=== PATIENT | male | born 1955 | race Caucasian/White ===

== ENCOUNTER → 2019-09-11 | Outpatient (CLI) | payer MEDICARE ==
--- NOTE | 2019-09-11 12:40 | 2DMMODE ---
[facility] [place] [address] 2 D/M-MODE ECHOCARDIOGRAM Name: DYANAIVANIA Derek Room #: REG [facility]#: [id number] Admission: 09/11/19 Attend Phys: Efrain Suazo, Discharge: Date of : 53 Report #: [id number] THIS REPORT FOR: //name// APPROVED REPORT Study performed: 09/11/2019 11:07:44 EXAM: Comprehensive 2D, Doppler, and color-flow Echocardiogram Patient Location: Out-Patient Room #: Echo lab 2 Status: routine BSA: 2.52 HR: 66 bpm BP: 112/68 mmHg Rhythm: NSR Other Information Study Quality: Adequate Indications Pericardial Effusion 2D Dimensions RVDd: 42.20 mm IVSd: 10.57 (7-11mm) LVOT Diam: 22.35 (18-24mm) LVDd: 56.66 mm PWd: 9.81 (7-11mm) Ascending Ao: 35.93 (22-36mm) LVDs: 35.04 (25-40mm) Aortic Root: 35.76 mm IVC: 22.00 mm Volumes Left Atrial Volume (Systole) Single Plane 4CH: 55.69 mL Single Plane 2CH: 71.39 mL LA ESV Index: 28.00 mL/m2 Aortic Valve AoV Peak Deyvi.: 1.93 m/s AO Peak Gr.: 14.97 mmHg LVOT Max P.28 mmHg LVOT Max V: 1.25 m/s DAVID Vmax: 2.54 cm2 Mitral Valve E/A Ratio: 0.9 MV Decel. Time: 287.47 ms MV E Max Deyvi.: 1.10 m/s [facility] [address] [address] 2 D/M-MODE ECHOCARDIOGRAM Name: IVANIA TURPIN Derek Room #: [facility]#: [id number] Admission: 09/11/19 Attend Phys: Efrain Suazo, Discharge: Date of : 53 Report #: [id number] MV A Deyvi.: 1.20 m/s MV PHT: 83.37 ms IVRT: 124.57 ms Pulmonary Valve PV Peak Deyvi.: 1.02 m/s PV Peak Gr.: 4.16 mmHg Pulmonary Vein P Vein S: 0.72 m/s P Vein A: 0.18 m/s P Vein D: 0.60 m/s P Vein A Dur.: 96.9 msec P Vein S/D Ratio: 1.20 Tricuspid Valve TR Peak Deyvi.: 2.49 m/s TR Peak Gr.: 24.82 mmHg PA Pressure: 35.00 mmHg Left Ventricle The left ventricle is normal size. There is normal LV segmental wall motion. There is normal left ventricular wall thickness. The left ventricular systolic function is normal. The left ventricular ejection fraction is within the normal range. LVEF is 55-60%. Grade I - abnormal relaxation pattern. Right Ventricle The right ventricle is normal size. The right ventricular systolic function is normal. Atria The left atrium size is normal. The right atrium size is normal. Aortic Valve The aortic valve is normal in structure. No aortic regurgitation is present. There is no aortic valvular stenosis. Mitral Valve The mitral valve is normal in structure. There is no mitral valve regurgitation noted. No evidence of mitral valve stenosis. Tricuspid Valve The tricuspid valve is normal in structure. There is trace tricuspid regurgitation. Estimated PAP 35 mmHg. There is mild pulmonary hypertension. Pulmonic Valve [facility] [address] [place] [address] 2 D/M-MODE ECHOCARDIOGRAM Name: IVANIA TURPIN Room #: [facility]#: [id number] Admission: 09/11/19 Attend Phys: Efrain Suazo, Discharge: Date of : 53 Report #: [id number] The pulmonary valve is normal in structure. There is no pulmonic valvular regurgitation. Great Vessels The aortic root is normal in size. IVC is dilated and collapses >50% with inspiration. Pericardium Mild to moderate circumferential pericardial effusion without echocardiographic evidence of tamponade. <Conclusion> The left ventricle is normal size. LVEF is 55-60%. The aortic valve is normal in structure. The mitral valve is normal in structure. The tricuspid valve is normal in structure. There is trace tricuspid regurgitation. Estimated PAP 35 mmHg. There is mild pulmonary hypertension. The pulmonary valve is normal in structure. Mild to moderate circumferential pericardial effusion without echocardiographic evidence of tamponade. <ELECTRONICALLY SIGNED> By: Ian Lepe MD 09/11/19 [id number] Ian Lepe MD /INF
== END ==
LOC: CV 10:13
DX: I31.3 Pericardial effusion (noninflammatory) (principal); I27.20 Pulmonary hypertension, unspecified

== ENCOUNTER → 2019-09-20 | Outpatient (CLI) | payer OTHER | LOC: SJCVCIMAG 08:13 → CAT 08:44 → SJCVCIMAG 14:59 | DX: Z13.6 Encounter for screening for cardiovascular disorders (principal); I25.10 Atherosclerotic heart disease of native coronary artery without angina pectoris; E78.00 Pure hypercholesterolemia, unspecified ==

== ENCOUNTER → 2020-01-31 | Outpatient (CLI) | payer MEDICARE | LOC: SJCVCIMAG 01-23 10:16 | DX: I31.3 Pericardial effusion (noninflammatory) (principal); I25.10 Atherosclerotic heart disease of native coronary artery without angina pectoris; N18.9 Chronic kidney disease, unspecified; E78.5 Hyperlipidemia, unspecified; Z79.899 Other long term (current) drug therapy; Z87.891 Personal history of nicotine dependence ==

== ENCOUNTER → 2020-09-17 | Outpatient (CLI) | payer MEDICARE | LOC: SJCVC 10:09 | PROVIDERS: ATTEND Internal Medicine | DX: R94.31 Abnormal electrocardiogram [ECG] [EKG] (principal); I25.10 Atherosclerotic heart disease of native coronary artery without angina pectoris; I95.9 Hypotension, unspecified; R42 Dizziness and giddiness; N18.4 Chronic kidney disease, stage 4 (severe); I31.3 Pericardial effusion (noninflammatory); D64.9 Anemia, unspecified; G62.9 Polyneuropathy, unspecified; M54.41 Lumbago with sciatica, right side; M54.42 Lumbago with sciatica, left side; G89.29 Other chronic pain; E78.5 Hyperlipidemia, unspecified; Z79.899 Other long term (current) drug therapy; Z87.891 Personal history of nicotine dependence; Z72.89 Other problems related to lifestyle ==

== ENCOUNTER → 2020-09-25 | Outpatient (CLI) | payer MEDICARE | LOC: SJCVCIMAG 10:43 | PROVIDERS: ATTEND Internal Medicine | DX: I08.1 Rheumatic disorders of both mitral and tricuspid valves (principal); I25.10 Atherosclerotic heart disease of native coronary artery without angina pectoris; I31.3 Pericardial effusion (noninflammatory); R42 Dizziness and giddiness ==

== ENCOUNTER → 2021-02-04 | Outpatient (CLI) | payer MEDICARE | LOC: SJCVC 10:09 | PROVIDERS: ATTEND Internal Medicine | DX: I31.3 Pericardial effusion (noninflammatory) (principal); I25.10 Atherosclerotic heart disease of native coronary artery without angina pectoris; G89.4 Chronic pain syndrome; N18.4 Chronic kidney disease, stage 4 (severe); F17.210 Nicotine dependence, cigarettes, uncomplicated; Z79.899 Other long term (current) drug therapy; Z72.89 Other problems related to lifestyle ==

== ENCOUNTER → 2021-03-12 | Outpatient (CLI) | payer MEDICARE ==
[~2021-03-12] VITALS: Ht 193 cm; Wt 130.6 kg
[~2021-03-12] MED LIST: CALCIUM CITRAT1 EA15 PO; FEOSOL325 M1 PO; HYDROXYZINE PAM25 M1 PO; LUNESTA2 MG PO; LYRICA PO; MS CONTIN60 MG PO; NORCO 10-325 T1 EACH PO; POTASSIUM CITR10 ME1 PO; TAMSULOSIN HCL0.4 MG PO
--- NOTE | ~2021-03-12 | HPC ---
[facility] [place] [address] PAIN MANAGEMENT CONSULTATION Name: IVANIA TURPIN Room #: REG ALVIN Buenrostro.#: [id number] Admission: 03/12/21 Attend Phys: Chuck Bashir DO Discharge: Date of : 53 Report #: [id number] THIS REPORT FOR: cc: Efrain Suazo MD, Neal A. MD Johnson, James E. DO ~ DOC #: [id number] cc: MD Chuck Sow DO DATE OF SERVICE: 03/12/2021 CHIEF COMPLAINT: Chronic low back pain. HISTORY OF PRESENT ILLNESS: As you know, the patient is a 65-year-old male who has had longstanding history of chronic low back pain, provided oral opioid medication management over the past couple of years. He was once a patient of Dr. Kings Angela, who was providing opioid medication management. The patient is currently taking 60 mg MS Contin twice a day along with the use of hydrocodone 10/325 p.r.n. up to 4 times a day. The patient is being evaluated for possible kidney transplant and has been advised by the business coordinator at that he would have to be off of opioid medication entirely before they would consider him as a candidate. Apparently a phone call was made to the group by the patient's primary care physician, Dr. Efrain Suazo who obtained information that the patient could be placed on methadone or Suboxone to take the place of the MS Contin and hydrocodone. Due to concerns of rotating the patient to these medications, the patient's primary care physician, Dr. Efrain Suazo contacted our clinic to have us see the patient and help transition him over to these medications. The patient reports today, his pain is continuous, steady and constant. He describes the pain as burning, cramping, aching, crushing, sharp, stabbing, tender and annoying. He places current pain score 6/10, daily average at 5-6/10, worst pain has been is 10/10. The patient states pain is exacerbated with any type of activity and exercise and improved with medications and rest. The patient reports that he is currently in discussions with [facility] business coordinator and wishes to delay any changes in medication management at this time until which time he has had a chance to discuss with their coordinator whether or not he is apt to come off his morphine and hydrocodone. He was referred to our clinic so that we could discuss the possibility of transition and he would then be able to return to our clinic for assistance if necessary. He is hopeful that [facility] can [facility], which potentially might not require him to come off the opioid medications. PAST MEDICAL HISTORY: 1. Chronic kidney disease, requiring possible kidney transplant. 2. Chronic intractable axial back pain due to chronic lumbar radiculopathy. [address] [address] PAIN MANAGEMENT CONSULTATION Name: DYANAIVANIA Derek Room #: REG ALVIN Bowman#: [id number] Admission: 03/12/21 Attend Phys: Chuck Bashir DO Discharge: Date of : 53 Report #: [id number] 3. Benign prostatic hypertrophy. 4. Iron deficiency. 5. Osteoporosis. PAST SURGICAL HISTORY: Neck fusion in 2009, Grace-en-Y gastric bypass in 2017. SOCIAL HISTORY: The patient is a former smoker. He denies IV or illicit drug use. Denies any chronic alcohol use. 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 He continues to do these activities. He is not receiving workmen's compensation nor is he trying to obtain disability benefits. He is not in litigation in regards to pain. He is unaccompanied at today's visit. REVIEW OF SYSTEMS: Positive for wearing corrective eyewear, hearing loss with tinnitus, nocturia, change of force or stream urination, incontinence and dribbling to urine, kidney stones and sexual difficulty, numbness and tingling sensations and insomnia, glandular and hormonal problems, thyroid disease, heat and cold intolerance and iron deficiency anemia. All other review of systems negative per 12-point review of systems other than those listed in history of present illness. Pain impact score 33/70, moderate interference of daily activities secondary to pain. ALLERGIES: No known drug allergies. CURRENT MEDICATIONS: Tamsulosin 0.4 mg once a day, ferrous sulfate 325 mg per day, calcium carbonate 1 tab per day, potassium citrate 10 mEq per day, Lyrica 400 mg once a day, Lunesta 2 mg p.o. bedtime, hydroxyzine 25 mg in the morning, hydrocodone 10/325 one tab every 6 hours p.r.n. for pain, MS Contin 60 mg twice a day. IMAGING: No imaging available. PHYSICAL EXAMINATION: VITAL SIGNS: Blood pressure 151/80, pulse is 63, respiratory rate 18 and unlabored. The patient is 100% on room air, height 6 feet 4 inches tall, weight 288 pounds, BMI calculated 35.1. GENERAL: Well-developed, well-nourished, well-hydrated 64-year-old male. He appears his stated age. He is in no acute distress. Awake, alert and oriented x3. Current pain score is rated at 3/10. HEENT: Normocephalic, atraumatic. Pupils are round. The patient is deemed a good historian. He is wearing mask in compliance with COVID-19 regulations. LUNGS: Clear, no wheeze, rhonchi or rales. CARDIOVASCULAR: Regular. No appreciable gallop, no rub. ABDOMEN: Soft, nontender. [facility] [address] [address] PAIN MANAGEMENT CONSULTATION Name: DYANAIVANIA Reed Room #: REG ZULEIMA NancyJoni#: [id number] Admission: 03/12/21 Attend Phys: Chuck Bashir DO Discharge: Date of : 53 Report #: [id number] EXTREMITIES: Show no clubbing, no cyanosis. MUSCULOSKELETAL: Lower extremity edema bilaterally, nonpitting, right greater than left. ASSESSMENT: 1. Chronic low back pain. 2. Chronic kidney disease, requiring renal transplant. 3. Opioid dependency. 4. Chronic intractable pain. PLAN: 1. Based on today's physical exam and the history the patient is providing, the description the patient uses in regards to pain as well as distribution of symptoms, it would appear he is suffering from chronic lumbar radicular symptoms. The patient has been started on high dose opioid medication and has been continued on this medication as he has found benefit. Prior to a reduction in his morphine, he was at doses classified as a supratherapeutic based on CDC's recommended no greater than 90 morphine equivalents. He is now taking approximately 160 morphine equivalents a day as a combination of the 60 mg b.i.d. morphine and the hydrocodone 10/325 four times a day dosing. The patient sought evaluation through [facility] specifically in regards to renal transplant. He was advised he would have to come off of opioid medication and transitioned onto either methadone or Suboxone. Apparently, this was clarified by Dr. Efrain Suazo, which based on my experience with renal transplants does not make clinical sense. There is no noted literature for requirement of coming off of opioid medication for chronic pain to undergo a renal transplant, though if the patient is considering this option through , they would have to transition the patient over to Suboxone and/or methadone. He was referred to our clinic to discuss the possibility rotation and to assist and rotating the patient over the medication returning his care to his PCP once this had been completed. The patient reports to me today that he is actually in ____ with [facility] and is awaiting their response in regards to whether or not he would be a candidate from their standpoint for kidney transplant. The patient's donor is his sister. He is considering utilizing the [facility] system based on whether or not they have these a very strict criteria in regards to opioid medications. He wishes to delay any change in medication management until he has a chance to have talked with the [facility] system in regards to their transplant requirements. 2. We have advised the patient we would be more than willing to see him back to assist in rotating medications if necessary. We are hopeful that the [facility] system will consider his case and allow him to continue on the morphine that he is seeing benefit with. If they also require rotational medication, will be available to assist in the rotating of the medication, but I have advised the patient that long-term opioid medication would have to be continued at another facility. He is understanding of this and is agreeable with the plan to date. 3. We wish to thank Dr. Suazo for the referral of the patient to our clinic. [facility] [address] [place] [address] PAIN MANAGEMENT CONSULTATION Name: IVANIA TURPIN Room #: REG Sakina Bowman#: [id number] Admission: 03/12/21 Attend Phys: Chuck Bashir DO Discharge: Date of : 53 Report #: [id number] We will keep you apprised whether or not he does need to rotate on to methadone or Suboxone for the kidney transplant or whether or not [facility] will accept him on the morphine specifically. The patient is very hopeful he can remain on the morphine and work through the [facility] system, but is prepared if necessary to utilize the [facility] and to the rotation requested. Again, we wish to thank you for the opportunity to see this patient in consultation. Time spent with the patient in consultation, reviewing pertinent information, reviewing recent studies, clinical notes and physician reports, performing physical exam and correlating the physical findings took over 35 minutes of time. Time spent in preparation for the appointment reviewing the prescription monitoring system, reviewing the previous records, proposed treatment options and reviewing current medications. Time spent preparing documentation for the visit and the plan of treatment 5 minutes of time. Total time spent 50 minutes. Chuck Bashir DO JEJ/ELENITA/UPE By: [id number] Chuck Bashir DO /nt
[2021-03-12 09:53] VITALS: BP 151/80
--- NOTE | 2021-03-12 10:16 | NUR ---
Pain Clinic Assessment: 1. History of Osteoarthritis: Left Lower Extremity Right Lower Extremity BILATERAL HANDS History of Rheumatoid Arthritis: Not Applicable 2. Height: 6 ft. 4 in. 193.0 cm. Weight: 288.0 lb. oz. 130.636 kg. Patient's BMI: 35.1 3. Vital Signs: BP: 151/80 Pulse: 63 Resp: 18 Temp: 02 Sat: 100 ECG Mon: 4. Pain Intensity: 6 5. Fall Risk: Dizziness: Needs help standing or walking: Fallen in the last 3 months: Fall risk comments: 6. Patient on Blood Thinner: None 7. History of Hypertension: N 8. Opioid Therapy greater than 6 weeks: Y Opiate Contract Signed: 9. Risk Assessment Tool Provided: LOW 10. Functional Assessment Tool: 11. Recreational Drug Use: Never Drug Type: Tobacco Use: Former Smoker Tobacco Type: Cigarettes Amount or Packs/day: 1/2 How Many Years: Alcohol Use: Yes Frequency: Weekly Quant: 1
== END ==
LOC: PAIN 06:58
PROVIDERS: ATTEND Anesthesiology Pain Medicine
DX: M54.16 Radiculopathy, lumbar region (principal); G89.4 Chronic pain syndrome; N40.0 Benign prostatic hyperplasia without lower urinary tract symptoms; M81.0 Age-related osteoporosis without current pathological fracture; Z79.891 Long term (current) use of opiate analgesic; Z79.899 Other long term (current) drug therapy; N18.9 Chronic kidney disease, unspecified

== ENCOUNTER → 2021-03-13 | Outpatient (CLI) | payer MEDICARE | LOC: NUC 06:51 | PROVIDERS: ATTEND Family Medicine | DX: E21.3 Hyperparathyroidism, unspecified (principal) ==

== ENCOUNTER → 2021-05-21 | Outpatient (CLI) | payer MEDICARE | LOC: SJCVC 09:38 | PROVIDERS: ATTEND Internal Medicine | DX: I31.3 Pericardial effusion (noninflammatory) (principal); G89.4 Chronic pain syndrome; N18.4 Chronic kidney disease, stage 4 (severe); Z13.220 Encounter for screening for lipoid disorders; Z79.899 Other long term (current) drug therapy; Z87.891 Personal history of nicotine dependence; Z72.89 Other problems related to lifestyle ==